=== PATIENT | female | born 1935 | race Caucasian/White ===

== ENCOUNTER 2019-12-28 13:47 | Outpatient (RCR) | payer MEDICARE, MEDICAID | END 2020-01-24 16:11 | LOC: OPPGERO 13:47 | DX: F33.2 Major depressive disorder, recurrent severe without psychotic features (principal); I13.0 Hypertensive heart and chronic kidney disease with heart failure and stage 1 through stage 4 chronic kidney disease, or unspecified chronic kidney disease; I50.9 Heart failure, unspecified; J45.909 Unspecified asthma, uncomplicated; N18.4 Chronic kidney disease, stage 4 (severe); E78.2 Mixed hyperlipidemia; K21.9 Gastro-esophageal reflux disease without esophagitis; K57.92 Diverticulitis of intestine, part unspecified, without perforation or abscess without bleeding; I15.9 Secondary hypertension, unspecified; J96.91 Respiratory failure, unspecified with hypoxia; I25.10 Atherosclerotic heart disease of native coronary artery without angina pectoris; M19.90 Unspecified osteoarthritis, unspecified site; E66.9 Obesity, unspecified; H34.8110 Central retinal vein occlusion, right eye, with macular edema; I82.401 Acute embolism and thrombosis of unspecified deep veins of right lower extremity; Z63.4 Disappearance and death of family member; Z79.51 Long term (current) use of inhaled steroids; Z79.899 Other long term (current) drug therapy; Z99.81 Dependence on supplemental oxygen ==

== ENCOUNTER 2020-01-25 10:33 | Outpatient (RCR) | payer MEDICARE, MEDICAID | END 2020-02-24 14:12 | disposition still patient (30) | LOC: OPPGERO 10:33 | DX: F33.2 Major depressive disorder, recurrent severe without psychotic features (principal); I13.0 Hypertensive heart and chronic kidney disease with heart failure and stage 1 through stage 4 chronic kidney disease, or unspecified chronic kidney disease; N18.4 Chronic kidney disease, stage 4 (severe); I50.9 Heart failure, unspecified; J45.909 Unspecified asthma, uncomplicated; K21.9 Gastro-esophageal reflux disease without esophagitis; E83.42 Hypomagnesemia; I15.9 Secondary hypertension, unspecified; H34.8110 Central retinal vein occlusion, right eye, with macular edema; I25.10 Atherosclerotic heart disease of native coronary artery without angina pectoris; M19.90 Unspecified osteoarthritis, unspecified site; E66.9 Obesity, unspecified; I82.401 Acute embolism and thrombosis of unspecified deep veins of right lower extremity; N04.1 Nephrotic syndrome with focal and segmental glomerular lesions; E78.2 Mixed hyperlipidemia; D63.1 Anemia in chronic kidney disease; K57.92 Diverticulitis of intestine, part unspecified, without perforation or abscess without bleeding; Z79.51 Long term (current) use of inhaled steroids; Z79.899 Other long term (current) drug therapy; Z99.81 Dependence on supplemental oxygen ==